=== PATIENT | female | born 1980 | race Caucasian/White ===

== ENCOUNTER → 2016-06-01 | Outpatient (REF) | payer OTHER ==
[2016-06-01 19:01] LABS: FREE T4 0.84 NG/DL (0.76-1.46)
== END ==
LOC: M LAB REF 16:44
PROVIDERS: ATTEND Internal Medicine Nephrology
DX: E03.9 Hypothyroidism, unspecified (principal)

== ENCOUNTER → 2020-01-23 | Outpatient (CLI) | payer OTHER ==
--- NOTE | 2020-02-05 13:50 | REP ---
MR ANGIOGRAPHY OF THE BRAIN WITHOUT CONTRAST HISTORY: Nash aneurysm. Follow-up. COMPARISON: Images have been retrieved from [facility] dated 05/31/2019. 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 TECHNIQUE: 3D [id number] MR angiography is acquired in the usual fashion. Source axial images are reviewed along with maximum intensity projection images. These latter images are displayed in a rotational format. MR ANGIOGRAPHIC FINDINGS: Distal vertebral arteries are widely patent and codominant. Basilar artery is slightly tortuous, but intact. Posterior cerebral and superior cerebellar arteries are unremarkable. The distal internal carotid arteries show no significant abnormality. The previously noted 2 mm distal right anterior cerebral artery (JACKY) nash aneurysm is less conspicuous today, but again seen on the source images and with difficulty on maximum intensity projection images projecting inferiorly from the distal A1 segment. A small patent anterior communicating artery is noted adjacent to this. No other nash aneurysm is seen. There is no evidence of arteriovenous malformation or vessel cutoff. 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 Less conspicuous on todays images. [facility]
== END ==
LOC: M RAD 10:13
PROVIDERS: ATTEND Physician Assistant Medical
DX: I67.1 Cerebral aneurysm, nonruptured (principal)

== ENCOUNTER → 2020-10-07 | Outpatient (CLI) | payer OTHER ==
--- NOTE | 2020-10-07 13:36 | REPVR ---
PROCEDURE INFORMATION: Exam: MRA Head Without Contrast; Arteriography Exam date and time: 10/07/2020 1:01 PM Age: 39 years old Clinical indication: Condition or disease; Aneurysm, cerebral TECHNIQUE: Imaging protocol: Magnetic resonance angiography head without contrast. Exam focused on the arteries. COMPARISON: MRA BRAIN W/O CONTRAST 01/23/2020 10:49 AM FINDINGS: ANTERIOR CIRCULATION: Right internal carotid artery: Intracranial segment is patent with no significant stenosis. No aneurysm. Right middle cerebral artery: No occlusion or significant stenosis. No aneurysm. Right anterior cerebral artery: No occlusion or significant stenosis. No aneurysm. Left internal carotid artery: Intracranial segment is patent with no significant stenosis. No aneurysm. Left middle cerebral artery: No occlusion or significant stenosis. No aneurysm. Left anterior cerebral artery: No occlusion or significant stenosis. No aneurysm. POSTERIOR CIRCULATION: Right vertebral artery: No occlusion or significant stenosis. No aneurysm. Left vertebral artery: No occlusion or significant stenosis. No aneurysm. Basilar artery: No occlusion or significant stenosis. No aneurysm. Right posterior cerebral artery: No occlusion or significant stenosis. No aneurysm. Left posterior cerebral artery: No occlusion or significant stenosis. No aneurysm. IMPRESSION: No stenosis or occlusion. Previously apparent 2 mm anterior cerebral artery is not visualized with certainty. Note that aneurysms under 3 mm are better evaluated with CTA. Electronically signed by: Berenice Rosenberg On 10/07/2020 13:36:06 PM
== END ==
LOC: M RAD 12:12
PROVIDERS: ATTEND Neurological Surgery
DX: I67.1 Cerebral aneurysm, nonruptured (principal)

== ENCOUNTER → 2023-08-29 | Outpatient (CLI) | payer OTHER ==
[~2023-08-29] MED LIST: AMLO1TAB24 PO; BACTDSTA PO; FLUC150T9 PO; FLUTISP; MAGN400T35 PO; METHACHOLINE KIT (6 VIAL.NEB PREMIX) INH ONE; OMEP-173 PO; PRED5TA PO; PROBCAP14 PO; PROP20TA72 PO; SODI650T PO; SPIR-10 PO; TACR0.5C3 PO; TACR1CAP3 PO; TOPA100T12 PO; VITAD1000T PO
== END ==
LOC: M CARPUL 12:18
PROVIDERS: ATTEND Physician Assistant
DX: R06.00 Dyspnea, unspecified (principal)
CPT/HCPCS: 94070; 95070; J7674